=== PATIENT | female | born 1975 | race Caucasian/White ===

== ENCOUNTER → 2018-01-01 08:19 | Outpatient (REF) | payer SELFPAY | LOC: OM 08:19 | PROVIDERS: PCP Nurse Practitioner Family; Visit Provider Nurse Practitioner Family | DX: Z02.83 Encounter for blood-alcohol and blood-drug test (principal) ==

== ENCOUNTER 2018-09-19 10:17 | Emergency (ER) | payer BC, SELFPAY ==
[2018-09-19 10:20] VITALS: BP 163/74; PULSE 84; RESP 14; TEMP 36.9; O2SAT 98
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
== END 2018-09-19 11:04 | disposition home or self-care (01) ==
PROVIDERS: Emergency Provider Physician Assistant; PCP Nurse Practitioner Family
DX: M79.10 Myalgia, unspecified site (principal); L50.0 Allergic urticaria; R60.0 Localized edema; T78.40XA Allergy, unspecified, initial encounter
CPT/HCPCS: 99283

== ENCOUNTER 2019-07-28 01:24 | Outpatient (CLI) | payer BC, SELFPAY ==
--- NOTE | 2019-07-28 | DI.MAMMO_ITS ---
EXAM: MG MAMMO SCREENING CLINICAL HISTORY: BASELINE, SCREENING,Z12.31 TECHNIQUE: Bilateral full field digital CC and MLO mammographic images were obtained with 3D tomosyn thesis and utilizing computer aided detection (CAD). COMPARISON: This is a baseline examination. FINDINGS: Masses/Architectural Distortion: None seen. Microcalcifications: No suspicious pleomorphic-type are seen. Skin Thickening/Nipple Retraction: None. IMPRESSION: 1. No evidence of malignancy is noted at this time. 2. Unless there is more urgent need, screening mammography is recommended, as per [place] [employer] guidelines. ACR BI-RAD Category- 1 Negative Breast Density - Category B - Scattered areas of fibroglandular density The mammogram demonstrates the patient's breast tissue is dense. Dense breast tissue is very common a nd is not abnormal but dense breast tissue can make it harder to find cancer on a mammogram. Also, de nse breast tissue may increase their breast cancer risk. This information about the result of the [facility] mogram report was provided to the patient to raise their awareness. Use this report when you speak wi th the patient about their risks for breast cancer, which includes their family history. At that time , you may recommend for more screening tests (Ultrasound or MRI) as they might be useful based on the ir risk. A negative radiographic report should not delay biopsy if a dominant or clinically suspicious mass is present. Up to ten percent of cancers are not identified on mammography. A negative report may reinforce clinical impression. Adenosis and dense breasts may obscure an underlying neoplasm. False positive reports average 6 to 10%. Patient will receive a letter notifying them of these results.
== END 2019-07-28 01:44 ==
PROVIDERS: PCP Nurse Practitioner Family; Visit Provider Nurse Practitioner Family
DX: Z12.31 Encounter for screening mammogram for malignant neoplasm of breast (principal)
CPT/HCPCS: 77063; 77067

== ENCOUNTER 2020-09-18 02:41 | Outpatient (CLI) | payer BC, SELFPAY ==
--- NOTE | 2020-09-18 | DI.MAMMO_ITS ---
EXAM: MG MAMMO SCREENING CLINICAL HISTORY: SCREENING,Z12.31. TECHNIQUE: Bilateral full field digital CC and MLO mammographic images were obtained with 3D tomosyn thesis and utilizing computer aided detection (CAD). COMPARISON: Prior baseline mammogram of July 2019 FINDINGS: No new significant radiograph findings in left breast In the right breast on the cc 3D imaging there is a new well-defined noncalcified oval nodule at appr oximately the deep 6 o'clock position located approximately 12 cm in from the nipple, this finding me asuring 5 x 4 millimeters. There are no malignant-appearing microcalcification groups in this region or elsewhere in either breast There is no significant architectural distortion nor skin thickening-retraction. IMPRESSION: No radiographic evidence of malignancy in left breast 5 x 4 millimeter oval noncalcified nodule deep 6 o'clock position right breast, best seen on the 3D c c imaging. The spot compression view and possible ultrasound recommended. BI-RADS Category 0 - Assessment Incomplete: Need additional imaging evaluation Breast Density - Category B - Scattered areas of fibroglandular density Breast density Category C or D implies that the patient has dense breast tissue. Dense breast tissue can make it harder to find cancer on a mammogram. Dense breast tissue is also associated with an incr eased risk of breast cancer. This information about the result of the mammogram report was provided to the patient to raise their awareness. Use this report when you speak with the patient about their risks for breast cancer, which includes their family history. At that time, you may recommend additional screening tests (Ultrasoun d or MRI) as these tests may add significant information. A negative radiographic report should not delay biopsy if a dominant or clinically suspicious mass is present. Up to ten percent of cancers are not identified on mammography. A negative report may reinforce clinical impression. Adenosis and dense breasts may obscure an underlying neoplasm. False positive reports average 6 to 10%. Patient will receive a letter notifying them of these results.
== END 2020-09-18 03:01 ==
PROVIDERS: PCP Nurse Practitioner Family; Visit Provider Nurse Practitioner Family
DX: Z12.31 Encounter for screening mammogram for malignant neoplasm of breast (principal); R92.8 Other abnormal and inconclusive findings on diagnostic imaging of breast
CPT/HCPCS: 77063; 77067

== ENCOUNTER 2020-09-22 03:57 | Outpatient (CLI) | payer BC, SELFPAY ==
--- NOTE | 2020-09-22 | DI.MAMMO_ITS ---
Exam(s) MG MAMMO SCREEN CALL BACK UNI US BREAST RT LIMITED EXAM: MG MAMMO SCREEN CALL BACK UNI and U/S breast RT limited CLINICAL HISTORY: F/U MAMMO, NEW OVAL NODULE. TECHNIQUE: Craniocaudal and mediolateral oblique Full Field Digital Mammography views of the right b reast with Computer Aided Diagnosis followed by Tomosynthesis and right breast ultrasound. COMPARISON: Priors available for comparison. FINDINGS: Mammography/Tomosynthesis: Masses/Architectural Distortion: There is again seen a well-circumscribed nodule in the outer right b reast. This is unchanged compared to the examination from 07/28/2019. Microcalcifictions: No suspicious pleomorphic-type are seen. Skin Thickening/Nipple Retraction: None. Right breast US: Echotexture: Normal appearance of the glandular tissue. Shadowing: No suspicious foci. Cyst: None. Solid lesions: None seen. Ductal dilation: None. IMPRESSION: 1. No evidence of malignancy is noted. 2. Unless there is more urgent need, follow-up screening mammography is recommended, as per [place] [employer] guidelines. 3. The findings were discussed with the patient on the date of the examination. BI-RADS Category 2 - Benign Findings Breast Density - Category B - Scattered areas of fibroglandular density Breast density Category C or D implies that the patient has dense breast tissue. Dense breast tissue can make it harder to find cancer on a mammogram. Dense breast tissue is also associated with an incr eased risk of breast cancer. This information about the result of the mammogram report was provided to the patient to raise their awareness. Use this report when you speak with the patient about their risks for breast cancer, which includes their family history. At that time, you may recommend additional screening tests (Ultrasoun d or MRI) as these tests may add significant information. A negative radiographic report should not delay biopsy if a dominant or clinically suspicious mass is present. Up to ten percent of cancers are not identified on mammography. A negative report may reinforce clinical impression. Adenosis and dense breasts may obscure an underlying neoplasm. False positive reports average 6 to 10%. Patient will receive a letter notifying them of these results.
== END 2020-09-22 04:17 ==
PROVIDERS: PCP Nurse Practitioner Family; Visit Provider Nurse Practitioner Family
DX: Z12.31 Encounter for screening mammogram for malignant neoplasm of breast (principal); R92.8 Other abnormal and inconclusive findings on diagnostic imaging of breast; N60.81 Other benign mammary dysplasias of right breast
CPT/HCPCS: 76642; 77063; 77067

== ENCOUNTER 2021-09-24 00:57 | Outpatient (CLI) | payer BC, SELFPAY ==
--- NOTE | 2021-09-24 | DI.MAMMO_ITS ---
Exam(s) MAMMO SCREENING EXAM: MAMMO SCREENING CLINICAL HISTORY: SCREENING BREAST CANCER Z12.31 TECHNIQUE: Mammograms were interpreted according to the usual protocol including computer analysis w [employer] CAD system, tomosynthesis and C-view imaging. COMPARISON: 2019 and 2020 FINDINGS: The breasts are composed of scattered fibroglandular densities, Breast Density category B. No suspicious masses or suspicious microcalcifications are seen. No skin thickening or abnormal axillary lymph nodes are seen. There has been no significant change from prior exams. IMPRESSION: BI-RADS Category 1, Negative mammogram Yearly screening mammography is recommended. Breast Density - Category B, scattered fibroglandular densities. A negative radiographic report should not delay biopsy if a dominant or clinically suspicious mass is present. Up to ten percent of cancers are not identified on mammography. A negative report may reinforce clinical impression. Adenosis and dense breasts may obscure an underlying neoplasm. False positive reports average 6 to 10%. Patient will receive a letter notifying them of these results.
== END 2021-09-24 01:17 ==
PROVIDERS: PCP Nurse Practitioner Family; Visit Provider Family Medicine
DX: Z12.31 Encounter for screening mammogram for malignant neoplasm of breast (principal)
CPT/HCPCS: 77063; 77067

== ENCOUNTER 2022-02-25 10:32 | Outpatient (REF) | payer BC, SELFPAY ==
[2022-02-25 15:53] LABS: HCT 35.8 % (36.0-46.0); HGB 11.6 g/dL (11.2-15.7); MCH 28.2 pg (27.0-33.0); MCHC 32.4 % (32.0-36.0); MCV 87 fL (80-95); MPV 11.3 fL (8.0-11.0); Platelet Count 249 10^3/uL (130-400); RBC 4.12 10^6/uL (3.93-5.22); RDW 12.4 % (11.7-14.6); RDW-SD 39.8 fL; WBC 6.06 10^3/uL (4.4-10.8)
[2022-02-25 16:59] LABS: Calculated LDL 157 mg/dL (<100); Cholesterol 219 mg/dL (<200); HDL Cholesterol 46 mg/dL (40-60); TSH 1.17 uIU/mL (0.36-3.74); Triglyceride 81 mg/dL (<150)
[2022-02-25 17:11] LABS: Vitamin D 25 Total 23.6 ng/mL (30-100)
[2022-02-25 17:37] LABS: FREE T4 0.83 ng/dL (0.76-1.46)
== END 2022-02-25 10:33 | disposition home or self-care (01) ==
LOC: NCHCN 10:32
PROVIDERS: PCP Nurse Practitioner Family; Visit Provider Nurse Practitioner Family
DX: E78.5 Hyperlipidemia, unspecified (principal); F41.8 Other specified anxiety disorders; G43.109 Migraine with aura, not intractable, without status migrainosus; E66.8 Other obesity
CPT/HCPCS: 80061; 82306; 85027; 84439; 84443

== ENCOUNTER 2022-08-14 15:09 | Outpatient (REF) | payer BC, SELFPAY ==
--- NOTE | 2022-08-14 14:45 | PAPFT_PTH ---
PATIENT: Karo Fitzpatrick LOC: [facility]#:[id number] AGE/SX: 47/F ROOM: RE08/14/[address]: Latasha Pickard : 1975 BED: DIS: 08/14/2022 SPEC #: [id number] RECD: 08/15/22 12:41 STATUS: CASEYBrandie REQ #: [id number] ИВАН: 08/14/22 14:[address]: Latasha Pickard DEPT: [facility] Cytology RECD BY: Heather Herrera ENTERED: 08/15/22 12:42 SP TYPE: PAPFT OTHR DR: Akanksha Gaffney Tissues: 1 - CX/ENDOCX FOR PAP SMEARS Procedures: PAP THIN PREP/UVM Screening HPV DNA PROBE Comments: [id number]
== END 2022-08-14 15:10 | disposition home or self-care (01) ==
LOC: NCHCN 15:09
PROVIDERS: PCP Nurse Practitioner Family; Visit Provider Nurse Practitioner Family
DX: Z12.4 Encounter for screening for malignant neoplasm of cervix (principal); Z11.51 Encounter for screening for human papillomavirus (HPV); Z01.419 Encounter for gynecological examination (general) (routine) without abnormal findings
CPT/HCPCS: 88142; 87624

== ENCOUNTER 2022-10-17 02:10 | Outpatient (CLI) | payer OTHER, SELFPAY ==
--- NOTE | 2022-10-17 07:40 | DI.MAMMO_ITS ---
Exam(s) MAMMO SCREENING EXAM: MAMMO SCREENING CLINICAL HISTORY: SCREENING FOR BREAST CANCER Z12.39 TECHNIQUE: Bilateral full field digital CC and MLO mammographic images were obtained with 3D tomosyn thesis and utilizing computer aided detection (CAD). COMPARISON: Available for comparison. FINDINGS: Masses/Architectural Distortion: None seen. Microcalcifications: No suspicious pleomorphic-type are seen. Skin Thickening/Nipple Retraction: None. IMPRESSION: 1. No significant interval change with no specific features of malignancy noted. 2. Unless there is more urgent need, screening mammography is recommended, as per [place] [employer] guidelines. BI-RADS Category 1 - Negative Breast Density - Category B - Scattered areas of fibroglandular density Breast density category C or D implies that the patient has dense breast tissue. Dense breast tissue is very common and is not abnormal but dense breast tissue can make it harder to find cancer on a ma mmogram. Also, dense breast tissue may increase their breast cancer risk. This information about the result of the mammogram report was provided to the patient to raise their awareness. Use this report when you speak with the patient about their risks for breast cancer, which includes their family hist ory. At that time, you may recommend for more screening tests (Ultrasound or MRI) as they might be us eful based on their risk. A negative radiographic report should not delay biopsy if a dominant or clinically suspicious mass is present. Up to ten percent of cancers are not identified on mammography. A negative report may reinforce clinical impression. Adenosis and dense breasts may obscure an underlying neoplasm. False positive reports average 6 to 10%. Patient will receive a letter notifying them of these results.
== END 2022-10-17 02:30 ==
PROVIDERS: PCP Nurse Practitioner Family; Visit Provider Nurse Practitioner Family
DX: Z12.31 Encounter for screening mammogram for malignant neoplasm of breast (principal)
CPT/HCPCS: 77063; 77067

== ENCOUNTER 2023-01-13 17:58 | Outpatient (REF) | payer OTHER, SELFPAY ==
[2023-01-13 18:55] LABS: HCT 34.4 % (36.0-46.0); HGB 11.3 g/dL (11.2-15.7); MCH 28.6 pg (27.0-33.0); MCHC 32.8 % (32.0-36.0); MCV 87 fL (80-95); MPV 10.4 fL (8.0-11.0); Platelet Count 256 10^3/uL (130-400); RBC 3.95 10^6/uL (3.93-5.22); RDW 12.7 % (11.7-14.6); RDW-SD 40.3 fL; WBC 6.33 10^3/uL (4.4-10.8)
[2023-01-13 19:28] LABS: Hemoglobin A1C 5.8 % (<5.7)
== END 2023-01-13 17:59 | disposition home or self-care (01) ==
LOC: NCHCN 17:58
PROVIDERS: PCP Nurse Practitioner Family; Visit Provider Nurse Practitioner Family
DX: R53.83 Other fatigue (principal); E66.9 Obesity, unspecified; R73.09 Other abnormal glucose
CPT/HCPCS: 85027; 83036

== ENCOUNTER 2023-03-06 11:47 | Outpatient (REF) | payer OTHER, SELFPAY ==
[2023-03-06 17:38] LABS: Ferritin 31 ng/mL (8-252)
== END 2023-03-06 11:48 | disposition home or self-care (01) ==
LOC: NCHCN 11:47
PROVIDERS: PCP Nurse Practitioner Family; Visit Provider Nurse Practitioner Family
DX: R53.83 Other fatigue (principal)
CPT/HCPCS: 82728

== ENCOUNTER 2024-06-08 02:30 | Outpatient (CLI) | payer BC, SELFPAY ==
--- NOTE | 2024-06-08 | DI.MAMMO_ITS ---
Exam(s) MG MAMMO DIAGNOSTIC UNI US BREAST LT LIMITED EXAM: MG MAMMO DIAGNOSTIC UNI CLINICAL HISTORY: R92.8 ABNL MAMMO,hypoechoic lesion lt breast. COMPARISON: MG MG MAMMO SCREENING from 09/24/2021 MG MG MAMMO SCREENING from 10/17/2022 US US BREAST LT LIMITED from 11/13/2023 US US BREAST LT LIMITED from 11/17/2023 US US BREAST LT LIMITED from 06/08/2024 TECHNIQUE: Craniocaudal and mediolateral oblique Full Field Digital Mammography views of left with C omputer Aided Diagnosis followed by Tomosynthesis and left breast ultrasound. FINDINGS: Mammography/Tomosynthesis: Masses: Slight decrease in prominence of the area of nodularity in the posteromedial left breast. No new findings. Architectural Distortion: None seen. Microcalcifications: No suspicious pleomorphic-type are seen. Skin Thickening/Nipple Retraction: None. Left breast US: Echotexture: Normal appearance of the glandular tissue. Shadowing: No suspicious foci. Cyst: Stable circumscribed hypoechoic lesion 10 o'clock position 4 cm from the nipple, cyst versus ly mph node. Solid lesions: None seen. Ductal dilation: None. IMPRESSION: 1. No evidence of malignancy is noted. 2. Unless there is more urgent need, follow-up screening mammography is recommended, bilateral screen ing is due in 6 months. BI-RADS Category 2 - Benign Findings Breast Density - Category B - Scattered areas of fibroglandular density A negative radiographic report should not delay biopsy if a dominant or clinically suspicious mass is present. Up to ten percent of cancers are not identified on mammography. A negative report may reinforce clinical impression. Adenosis and dense breasts may obscure an underlying neoplasm. False positive reports average 6 to 10%. Patient will receive a letter notifying them of these results.
== END 2024-06-08 02:50 ==
PROVIDERS: Visit Provider Family Medicine
DX: Z12.31 Encounter for screening mammogram for malignant neoplasm of breast (principal); R92.8 Other abnormal and inconclusive findings on diagnostic imaging of breast
CPT/HCPCS: 76642; 77061; 77065; G0279

== ENCOUNTER 2024-09-10 12:33 | Outpatient (REF) | payer BC, SELFPAY ==
[2024-09-10 15:57] LABS: Anion Gap 5.7 mmol/L (3-11); BUN 11 mg/dL (7-18); CO2 29.3 mmol/L (21.0-32.0); CREATININE 0.9 mg/dL (0.55-1.02); Calcium 9.1 mg/dL (8.5-10.1); Chloride 105 mmol/L (98-107); Estimated GFR 77.88 (mL/min/1.73m2); Glucose 97 mg/dL (74-106); Potassium 4.3 mmol/L (3.5-5.1); Sodium 140 mmol/L (136-145)
[2024-09-10 16:13] LABS: Calculated LDL 160 mg/dL (<100); Cholesterol 219 mg/dL (<200); HDL Cholesterol 46 mg/dL (>or=50); Triglyceride 65 mg/dL (<150)
[2024-09-10 17:19] LABS: Hemoglobin A1C 5.5 % (<5.7)
== END 2024-09-10 12:34 | disposition home or self-care (01) ==
LOC: NCHCN 12:33
PROVIDERS: Visit Provider Family Medicine
DX: E66.9 Obesity, unspecified (principal); E78.5 Hyperlipidemia, unspecified; R73.03 Prediabetes; R53.83 Other fatigue
CPT/HCPCS: 80048; 80061; 83036; 84443

== ENCOUNTER 2024-11-21 20:58 | Emergency (ER) | payer BC, SELFPAY ==
[2024-11-21 20:59] VITALS: BP 129/75; PULSE 75; RESP 18; TEMP 37; O2SAT 98
[2024-11-21 21:09] VITALS: RESP 18
--- NOTE | 2024-11-21 21:24 | W.ED.GENAD ---
Discharge Plan Disposition Patient Disposition: Home Condition: Stable Discharge Details Clinical Impression: Ruptured varicose vein Primary Care Provider: Unknown,Unknown ED Provider: Mini Walton Home Meds and New Rx's Prescriptions: No Action cyclobenzaprine 10 mg tablet 10 mg PO TID prednisone 5 mg tablet 5 mg PO DAILY Qty: 49 0RF Rx Instructions: 40mg x 2 days, 30mg x 2 days, 20mg x 2 days, 15 mg x 2 days, 10 mg x 2 days, 5 mg x 2 days, 2.5 mg x 2 days. norethindrone (contraceptive) [Ortho Micronor] 0.35 MG tablet 1 tab PO DAILY escitalopram oxalate [Lexapro] 20 MG tablet 20 mg PO DAILY ondansetron HCl 4 mg Tablet 4 - 8 mg PO TID sumatriptan succinate 6 mg/0.5 mL Cartridge 6 mg SUBCUT Q1-4H PRN hydroxyzine HCl 10 mg Tablet 1 - 2 mg PO DAILY desvenlafaxine 50 mg Tablet Extended Release 24 Hr 50 mg PO DAILY aspirin [Aspir-81] 81 mg Tablet,Delayed Release (Dr/Ec) 81 mg PO DAILY promethazine 25 mg Tablet 25 mg PO Q6H PRN hydroxyzine HCl 25 mg Tablet 25 mg PO BID Discharge Instructions Instructions: Treatment of Varicose Veins of the Leg, Laceration Repair With Stitches ED Additional Instructions: Please follow-up with the vascular surgeon. Please keep the wound clean and dry. Observe for any signs of infection and if this happens return to the emergency department immediately otherwise return to the emergency department within 7 days for removal of your 1 suture. HPI General Date/Time Provider Initiated Documentation: 11/21/24 21:00. HPI Narrative: The patient is a 49-year-old female with long history of varicose veins who comes the emergency department for bleeding varicose veins. Reports just prior to emergency room arrival while she was in the shower a varicose vein on her left leg started to bleed. Reports she did not hit it against anything and had not been shaving her legs when it started to bleed spontaneously. Denies taking any blood thinning medications. Denies taking NSAIDs on a regular basis either. Reports otherwise that she feels at baseline health. Reports that she bandaged right away but it would not stop bleeding so came to the emergency department. Reports this has happened in the past. Related Data Home Medications ?Medication ?Instructions ?Recorded ?Confirmed escitalopram oxalate 20 mg tablet 20 mg PO DAILY 11/14/14 11/21/24 (Lexapro) norethindrone (contraceptive) 0.35 1 tab PO DAILY 11/14/14 11/21/24 mg tablet (Ortho Micronor) aspirin 81 mg tablet,delayed 81 mg PO DAILY 09/19/18 11/21/24 release (Aspir-) desvenlafaxine 50 mg 50 mg PO DAILY 09/19/18 11/21/24 tablet,extended release 24 hr hydroxyzine HCl 10 mg tablet 1 - 2 mg PO DAILY 09/19/18 11/21/24 hydroxyzine HCl 25 mg tablet 25 mg PO BID 09/19/18 11/21/24 ondansetron HCl 4 mg tablet 4 - 8 mg PO TID 09/19/18 11/21/24 promethazine 25 mg tablet 25 mg PO Q6H PRN 09/19/18 11/21/24 sumatriptan succinate 6 mg/0.5 mL 6 mg subcut Q1-4H PRN 09/19/18 11/21/24 subcutaneous cartridge (refill) cyclobenzaprine 10 mg tablet 10 mg PO TID 06/05/22 11/21/24 prednisone 5 mg tablet 5 mg PO DAILY #49 tabs 10/05/24 11/21/24 Previous Rx's ?Medication ?Instructions ?Recorded prednisone 5 mg tablet 5 mg PO DAILY #49 tabs 10/05/24 Allergies Allergy/AdvReac Type Severity Reaction Status Date / Time bupropion HCl (From Allergy Mild Swelling/Ed Unverified 11/21/24 21:04 Wellbutrin) aric Penicillins Allergy Mild Swelling/Ed Unverified 11/21/24 21:04 aric General Stated Complaint: GenMedical RICK: 3 Review of Systems Narrative: Review of systems are negative except as mentioned. Exam Narrative Exam Narrative: General appearance: The patient is alert, has no immediate need for airway protection and no signs of toxicity. Neurological: The patient is alert, awake and oriented x 3. Skin: The patient has a bleeding varicosity on the left davalos. Bleeding is venous without pulsatile bleed. Course Vital Signs Vital signs: Vital Signs Temperature 37.0 C 11/21/24 20:59 Pulse 75 11/21/24 20:59 Respiratory Rate 18 11/21/24 20:59 Blood Pressure 129/75 11/21/24 20:59 Pulse Oximetry 98 11/21/24 20:59 Temperature 37.0 C 11/21/24 20:59 Temperature Source Oral 11/21/24 20:59 Pulse 75 11/21/24 20:59 Respiratory Rate 18 11/21/24 21:09 Respiratory Effort Normal 11/21/24 21:09 Respiratory Depth Normal 11/21/24 21:09 Respiratory Pattern Normal 11/21/24 21:09 Blood Pressure 129/75 11/21/24 20:59 Pulse Oximetry 98 11/21/24 20:59 Oxygen Delivery Method Room Air 11/21/24 20:59 Oxygen Flow Rate 0 11/21/24 20:59 Pain Level 4 11/21/24 20:59 Procedure Laceration Laceration 1: Provider that performed the procedure: Mini Walton Patient Consented: Verbally Site: lower extremity (left davalos) Side (If applicable): left Description: other (ruptured varicose vein) Depth: simple, single layer Local anesthetic: Lidocaine 2% and with Epi Skin layer closed with: nylon Suture size: 4-0 Number of sutures:: 1 Medical Decision Making The patient arrives with a tampon overlying the wound with a gauze on top of this and her leg wrapped in tape providing pressure on to the bleeding varicosity and in spite of this the patient continues to have bleed. For this reason I told her of need for suture and patient agreed. I was able to achieve hemostasis with one simple interrupted suture. She is watched for a little bit longer and ambulated and there was no recurrent bleed. She is therefore to be discharged shortly. She is asked to keep wound clean and dry and observe for any signs of infection and if this happens return to the emergency department immediately otherwise I had a conversation with her regarding following up with a vascular surgeon to address her varicose veins. PFSH All Active Problems (Updated 11/21/24 @ 21:25 by Mini Walton DO) Ruptured varicose vein (Acute) Social History Smoking/Tobacco Use Status: Never Smoking risk assessment performed?: Yes Drug use: Never Do you feel safe at home: Yes Do you feel safe in your relationship?: Yes
[2024-11-21 21:35] VITALS: BP 120/54; PULSE 70; RESP 18; O2SAT 97
--- NOTE | 2024-11-21 21:36 | NUR.NOTE ---
PT was ambulated in the hallway 20 yards. prior to DC to assess suture Nursing Note:
[2024-11-21] MEDS: Lidocaine 2% Multi-Dose W/EPI 1/100,000 20 ML VIAL IJ (21:41)
== END 2024-11-21 21:35 | disposition home or self-care (01) ==
LOC: ER 21:26
PROVIDERS: Emergency Provider Emergency Medicine
DX: I83.892 Varicose veins of left lower extremity with other complications (principal); Z79.82 Long term (current) use of aspirin
CPT/HCPCS: 12001; 99283; J2004